=== PATIENT | male | born 1980 ===

== ENCOUNTER 2016-12-05 15:24 | Emergency (ER) | payer MEDICAID, OTHER ==
[2016-12-05 15:24] VITALS: BMI 33.5
--- NOTE | 2016-12-05 15:28 | ED PDOC ---
Arrival/HPI - General Time Seen by Provider: 12/05/16 15:27 Historian: Patient - History of Present Illness Narrative History of Present Illness (Text): 12/05/16 15:28 36 year old male, pmh including 7th rib fracture, nkda, complaining of Past Medical History - Past History Past History: No Previous - Cardiac Hx Cardiac Disorders: No - Pulmonary Hx Respiratory Disorders: Yes Hx Asthma: Yes - Neurological Hx Neurological Disorder: No - HEENT Hx HEENT Disorder: No - Renal Hx Renal Disorder: No - Endocrine/Metabolic Hx Endocrine Disorders: No - Hematological/Oncological Hx Blood Disorders: No - Integumentary Hx Dermatological Disorder: No - Musculoskeletal/Rheumatological Hx Musculoskeletal Disorders: No - Gastrointestinal Hx Gastrointestinal Disorders: No - Genitourinary/Gynecological Hx Genitourinary Disorders: No - Psychiatric Hx Psychophysiologic Disorder: No Hx Depression: No Hx Emotional Abuse: No Hx Physical Abuse: No Hx Substance Use: No - Surgical History Hx Appendectomy: Yes - Suicidal Assessment Feels Threatened In Home Enviroment: No Family/Social History Smoking Status: Never Smoked Hx Alcohol Use: Yes Hx Substance Use: No Hx Substance Use Treatment: No Allergies/Home Meds Allergies/Adverse Reactions: Allergies No Known Allergies Allergy (Verified 12/19/14 17:05) Home Medications: Home Meds Medication Instructions Recorded Confirmed No Known Home Med 12/05/16 12/05/16 Disposition/Present on Arrival - Present on Arrival History of DVT/PE: No History of Uncontrolled Diabetes: No Urinary Catheter: No History Surgical Site Infection Following: None - Disposition
[2016-12-05 15:30] VITALS: BP 102/71; PULSE 69; RESP 16; TEMP 98.6; O2SAT 98
--- NOTE | 2016-12-05 16:02 | ED PDOC ---
Arrival/HPI - General Chief Complaint: Rib Injury Time Seen by Provider: 12/05/16 15:27 Historian: Patient - History of Present Illness Narrative History of Present Illness (Text): 12/05/16 36 yo male come in for evaluation of Right sided lateral chest wall pain gradually developed while playing sports. Pt sts, " kick the ball over the head while playing basketball and instantly felt a pain in my Right ribcage". Pt admits, pain is localized, non-radiating and worse with Right arm movement. Otherwise, pt denies fever, chills, headache, dizziness, chest pain, shortness of breath, dyspnea, diaphoresis, palpitation, denies weakness, sensory or vascular deficits to B/L UEs. Ambulate to Emergency department for evaluation, not in any apparent distress. Past Medical History - Provider Review Nursing Documentation Reviewed: Yes - Travel History Have you recently traveled outside [place] w/in the past 3 mons?: No - Past History Past History: No Previous - Tetanus Immunization Tetanus Immunization: Unknown - Cardiac Hx Cardiac Disorders: No - Pulmonary Hx Respiratory Disorders: Yes Hx Asthma: Yes - Neurological Hx Neurological Disorder: No - HEENT Hx HEENT Disorder: No - Renal Hx Renal Disorder: No - Endocrine/Metabolic Hx Endocrine Disorders: No - Hematological/Oncological Hx Blood Disorders: No - Integumentary Hx Dermatological Disorder: No - Musculoskeletal/Rheumatological Hx Musculoskeletal Disorders: No - Gastrointestinal Hx Gastrointestinal Disorders: No - Genitourinary/Gynecological Hx Genitourinary Disorders: No - Psychiatric Hx Psychophysiologic Disorder: No Hx Depression: No Hx Emotional Abuse: No Hx Physical Abuse: No Hx Substance Use: No - Surgical History Hx Appendectomy: Yes - Suicidal Assessment Feels Threatened In Home Enviroment: No Family/Social History - Physician Review Nursing Documentation Reviewed: Yes Family/Social History: No Known Family HX Smoking Status: Never Smoked Hx Alcohol Use: Yes Hx Substance Use: No Hx Substance Use Treatment: No Allergies/Home Meds Allergies/Adverse Reactions: Allergies No Known Allergies Allergy (Verified 12/19/14 17:05) Review of Systems - Review of Systems Constitutional: Normal Eyes: Normal ENT: Normal Respiratory: absent: SOB, Cough, Sputum, Wheezing Cardiovascular: Other (Right sided chest wall pain). absent: Chest Pain, Palpitations, Calf Pain, ROONEY, Orthopnea, Syncope Gastrointestinal: Normal Genitourinary Male: Normal Musculoskeletal: Normal Skin: Normal Neurological: Normal Endocrine: Normal Hemo/Lymphatic: Normal Psychiatric: Normal Physical Exam Vital Signs Reviewed: Yes Vital Signs Temp Pulse Resp BP Pulse Ox 12/05/16 15:26 98.6 F 69 16 102/71 98 Temperature: Afebrile Blood Pressure: Normal Pulse: Regular Respiratory Rate: Normal Appearance: Positive for: Well-Appearing, Non-Toxic, Comfortable Pain Distress: Moderate Mental Status: Positive for: Alert and Oriented X 3 - Systems Exam Head: Present: Normocephalic Conjunctiva: Present: Normal Mouth: Present: Moist Mucous Membranes Neck: Present: Trachea Midline. No: MIDLINE TENDERNESS, JVD, Bruit Respiratory/Chest: Present: Clear to Auscultation, Good Air Exchange, Tender to Palpation (Right lateral chest wall tenderness overlying 9-12 intercostal spaces fron axillary line extends anter. NO palpable deformity, no ecchymoses.) . No: Respiratory Distress, Wheezes, Decreased Breath Sounds, Tachypneic Cardiovascular: Present: Regular Rate and Rhythm, Normal S1, S2. No: Murmurs Abdomen: Present: Normal Bowel Sounds. No: Tenderness, Distention, Peritoneal Signs, Rebound, Guarding Back: No: Midline Tenderness Upper Extremity: Present: Normal ROM. No: Deformity Lower Extremity: Present: Normal ROM. No: Deformity Neurological: Present: GCS=15, Speech Normal, Normal Sensory Function, Norm Deep Tendon Reflexes Skin: Present: Warm, Dry, Normal Color. No: Rashes Psychiatric: Present: Alert, Oriented x 3 Medical Decision Making ED Course and Treatment: 12/05/16 16:05 On re-evaluation, pt is afebrile, hemodynamicaly stable. Non-toxic. PuslEOx 98% RA Head: AT/NC neck: Supple, (-) midline tenderness, (-) JVD, (-) carotid bruits B/L. Lungs: CTA B/L, BS equal B/L. CVS: (+)S1S2, reg. CXR review and appears normal. Pt has clinical findings c/w Right sided chest wall strain. Pt advised. ref. to f/u with PMD in 2-3 days for re-eval. return to Emergency department if any worsening or new changes. - RAD Interpretation Radiology Orders: 12/05/16 15:42 CHEST TWO VIEWS (PA/LAT) [RAD] Stat (-) ACUTE FINDINGS - Medication Orders Current Medication Orders: Discontinued Medications Ibuprofen (Motrin Tab) 800 mg PO STAT STA Stop: 12/05/16 15:44 Last Admin: 12/05/16 15:49 Dose: 800 mg Disposition/Present on Arrival - Present on Arrival Any Indicators Present on Arrival: No History of DVT/PE: No History of Uncontrolled Diabetes: No Urinary Catheter: No History of Decub. Ulcer: No History Surgical Site Infection Following: None - Disposition Have Diagnosis and Disposition been Completed?: Yes Diagnosis: Strain of chest wall Disposition: HOME/ ROUTINE Disposition Time: 16:40 Patient Plan: Discharge Patient Problems: Current Active Problems Problem Status Onset Strain of chest wall Acute Condition: STABLE Discharge Instructions (ExitCare): Chest Wall Pain (ED) Additional Instructions: AVOID STRENUOUS PHYSICAL ACTIVITY FOR UPPER BODY FOR 1-2 WEEKS TAKE PAIN MEDICATION PRESCRIBED FOLLOW UP WITH PMD IN 2-3 DAYS FOR RE-EVALUATION. RETURN TO Emergency department IF ANY WORSENING OR NEW CHANGES. Prescriptions: Ibuprofen [Motrin Tab] 600 mg PO Q6 #20 tab Methocarbamol [Robaxin] 500 mg PO TID #14 tab traMADol [Ultram] 50 mg PO TID #7 tab Referrals: [facility] [place] [Outside] - Follow up with primary Forms: [employer] (Romansh)
--- NOTE | 2016-12-05 20:02 | RAD ---
HISTORY: Right side pain COMPARISON: 12/19/2014. TECHNIQUE: Chest PA and lateral FINDINGS: LUNGS: No active pulmonary disease. PLEURA: No significant pleural effusion identified. No pneumothorax apparent. CARDIOVASCULAR: Normal. OSSEOUS STRUCTURES: No significant abnormalities. VISUALIZED UPPER ABDOMEN: Normal. OTHER FINDINGS: None. IMPRESSION: No active disease. No significant interval change compared to the prior examination(s). Concordant results with the preliminary interpretation rendered by the emergency department physician procedure.
== END 2016-12-05 17:10 | disposition home or self-care (01) ==
LOC: ED 15:24
DX: S29.011A Strain of muscle and tendon of front wall of thorax, initial encounter (principal); X50.0XXA Overexertion from strenuous movement or load, initial encounter; Y93.67 Activity, basketball; Y92.39 Other specified sports and athletic area as the place of occurrence of the external cause